=== PATIENT | male | born 1940 | race Caucasian/White ===

== ENCOUNTER → 2017-02-18 | Outpatient (CLI) | payer MEDICARE, BC ==
[2017-02-18 14:08] LABS: HEMATOCRIT 47.3 % (38.0-50.0); HEMOGLOBIN 15.5 gm/dL (13.0-16.0); MEAN CELL VOLUME 90.2 FL (83-96); MEAN CORPUSCULAR HEMOGLOBIN 29.5 PG (28-34); MEAN CORPUSCULAR HGB CONC 32.7 g/dL (30-36); MEAN PLATELET VOLUME 7.9 FL (6.5-11.5); RED BLOOD COUNT 5.24 X10e (3.90-5.60); RED CELL DISTRIBUTION WIDTH 14.6 % (11.0-15.5); WHITE BLOOD COUNT 8.9 X10e3 (4.0-10.5)
[2017-02-18 14:14] LABS: URINE APPEARANCE CLEAR; URINE BILIRUBIN NEG (NEG); URINE BLOOD NEG (NEG); URINE COLOR YELLOW; URINE GLUCOSE NEG (NEG); URINE KETONE NEG (NEG); URINE LEUKOCYTE ESTERASE NEG (NEG); URINE NITRATE NEG (NEG); URINE PROTEIN NEG (NEG); URINE SPECIFIC GRAVITY 1.009 (1.003-1.035); URINE UROBILINOGEN 0.2 MG/DL (NEG)
[2017-02-18 14:21] LABS: URINE SOURCE CLEAN CATCH
[2017-02-18 14:23] LABS: CREATININE,RANDOM URINE 58 mg/dL; TOTAL PROTEIN,RANDOM URINE <10 mg/dl (<10)
[2017-02-18 16:17] LABS: BILIRUBIN,TOTAL 0.6 mg/dL (0.2-2.0); BUN/CREATININE RATIO 13.07; CALCIUM SERUM 9.5 mg/dL (8.4-10.2); CREATININE SERUM 1.3 mg/dL (0.6-1.4); GLOM FILT RATE Estimated 53.8 mL/min (>60); MAGNESIUM 2.2 mg/dL (1.6-3.0); PHOSPHOROUS 4.7 mg/dL (2.5-4.6)
[2017-02-20 00:18] LABS: CALCIUM (PTHINTACT) 9.2 mg/dL (8.6-10.3)
== END | disposition home or self-care (01) ==
LOC: CLAB 12:32
PROVIDERS: Internal Medicine Nephrology
DX: N18.3 Chronic kidney disease, stage 3 (moderate) (principal)
CPT/HCPCS: 36415; 74176; 80053; 81003; 82310; 82570; 83735; 83970; 84100; 84156; 85027